=== PATIENT | female | born 1940 | race African-American/Black ===

== ENCOUNTER 2022-03-02 14:10 | Observation (INO) ==
[2022-03-02] MEDS ORDERED: ONDANSETRON 4 MG/2 ML VIAL IV STA (15:08)
[2022-03-02] MEDS ORDERED: SODIUM CHLORIDE 0.9% 1,000 ML IV STA (15:08)
[2022-03-02] MEDS ORDERED: fentaNYL 100 MCG/2 ML VIAL IV STA (15:08)
[2022-03-02] MEDS ORDERED: DIPH/TET/ACEL PERT BOOSTER VACCINE 0.5 ML VIAL IM ONE (15:11)
[2022-03-02] MEDS ORDERED: CROTALIDAE SNAKE ANTIVENOM 4 VIAL in SODIUM CHLORIDE 0.9% 250 ML IV STA ×2 (15:17→15:53)
[2022-03-02 15:43] LABS: Basophils % 0.2 % (0.0-0.8); Eosinophils # 0.2 10*3/uL (0.0-0.87); Eosinophils % 1.9 % (0.00-10.9); Hematocrit 35.2 VOL% (35.7-47.0); Hemoglobin 11.5 GM/DL (12.0-16.0); Immature Granulocytes % 0.4 %; Immature Granulocytes Absolute 0.03 #; Lymphocytes # 1.4 10*3/uL (1.4-4.0); Lymphocytes % 16.5 % (21.3-54.2); Mean Corpuscular HGB Conc 32.7 GM/DL (32-36); Mean Corpuscular Volume 94.4 FL (87-102); Mean Platelet Volume 9.5 FL (9.6-12.0); Monocytes # 0.8 10*3/uL (0.11-0.8); Platelet Count 196 T/CUMM (130-400); Red Blood Count 3.73 MC/CUMM (3.8-5.5); Red Cell Distribution Width 12.8 % (9.3-17.3); White Blood Count 8.5 T/CUMM (4-12)
[2022-03-02 16:01] LABS: Alanine Aminotransferase 144 U/L (13-56); Albumin 3.5 G/DL (3.4-5.0); Alkaline Phosphatase 121 U/L (45-117); Aspartate Amino Transferase 175 U/L (0-37); Bilirubin,Total < 0.39 MG/DL (0.20-1.00); Blood Urea Nitrogen 15 MG/DL (7-18); Calcium 9.1 MG/DL (8.5-10.1); Carbon Dioxide 29 MMOL/L (21-32); Chloride 105 MMOL/L (98-107); Estimated Glom Filtration Rate 46 ML/MIN; Glucose 123 MG/DL (74-106); Osmolality,Calculated 278.5 MOS/KG (273-304); Potassium 3.1 MMOL/L (3.5-5.1); Sodium 139 MMOL/L (136-145); Total Protein 8.5 G/DL (6.4-8.2)
[2022-03-02] MEDS ORDERED: ACETAMINOPHEN 325 MG TABLET PO PRN (16:24)
[2022-03-02] MEDS ORDERED: HYDROmorphone 1 MG/1 ML SYRINGE IV PRN ×2 (16:24→16:41)
[2022-03-02] MEDS ORDERED: ONDANSETRON 4 MG/2 ML VIAL IV PRN (16:24)
[2022-03-02 17:13] LABS: INR 1.1; PT Patient Result 12.4 SECS (10.5-12.0); Partial Thromboplastin Time 32.4 SECS (23.8-32.1)
[2022-03-02] MEDS: LACTATED RINGERS 1,000 ML IV SCH (17:20)
[2022-03-02] MEDS ORDERED: CROTALIDAE SNAKE ANTIVENOM IV ONE (19:35)
[2022-03-02] MEDS ORDERED: SODIUM CHLORIDE IV ONE (19:35)
[2022-03-02] MEDS: LATANOPROST 0.005% OPH SOLN 2.5 ML BOTTLE BOTH EYES SCH (22:31)
[2022-03-03] MEDS: LACTATED RINGERS 1,000 ML IV SCH ×3 (02:51→17:15)
[2022-03-03 06:45] LABS: Basophils % 0.2 % (0.0-0.8); Eosinophils # 0.1 10*3/uL (0.0-0.87); Eosinophils % 2.7 % (0.00-10.9); Hematocrit 30.5 VOL% (35.7-47.0); Hemoglobin 9.9 GM/DL (12.0-16.0); Immature Granulocytes % 0.4 %; Immature Granulocytes Absolute 0.02 #; Lymphocytes # 1.7 10*3/uL (1.4-4.0); Lymphocytes % 35.2 % (21.3-54.2); Mean Corpuscular HGB Conc 32.5 GM/DL (32-36); Mean Corpuscular Volume 95.6 FL (87-102); Mean Platelet Volume 9.9 FL (9.6-12.0); Monocytes # 0.5 10*3/uL (0.11-0.8); Neutrophils % 50.5 % (38.7-73.9); Platelet Count 184 T/CUMM (130-400); Red Blood Count 3.19 MC/CUMM (3.8-5.5); Red Cell Distribution Width 13.1 % (9.3-17.3); White Blood Count 4.8 T/CUMM (4-12)
[2022-03-03 06:54] LABS: PT Patient Result 11.5 SECS (10.5-12.0); Partial Thromboplastin Time 30.7 SECS (23.8-32.1)
[2022-03-03 07:05] LABS: Albumin 2.7 G/DL (3.4-5.0); Bilirubin,Total 0.4 MG/DL (0.20-1.00); Calcium 8.4 MG/DL (8.5-10.1); Osmolality,Calculated 279.3 MOS/KG (273-304); Potassium 3.3 MMOL/L (3.5-5.1); Total Protein 6.9 G/DL (6.4-8.2)
[2022-03-03] MEDS: ASPIRIN EC 81 MG TABLET PO SCH (07:40)
[2022-03-03] MEDS: hydroCHLOROthiazide 25 MG TABLET PO SCH (07:40)
[2022-03-03] MEDS: PANTOPRAZOLE 40 MG TABLET PO SCH (07:40)
[2022-03-03] MEDS: TIMOLOL 0.5% OPH SOLN 5 ML BOTTLE BOTH EYES SCH (09:00)
[2022-03-03] MEDS ORDERED: CROTALIDAE SNAKE ANTIVENOM IV ONE (10:00)
[2022-03-03] MEDS ORDERED: SODIUM CHLORIDE IV ONE (10:00)
[2022-03-03 17:14] VITALS: BP 112/58
[2022-03-03] MEDS: LATANOPROST 0.005% OPH SOLN 2.5 ML BOTTLE BOTH EYES SCH (21:33)
[2022-03-04] MEDS: hydroCHLOROthiazide 25 MG TABLET PO SCH (08:33)
[2022-03-04] MEDS: PANTOPRAZOLE 40 MG TABLET PO SCH (08:33)
[2022-03-04] MEDS: ASPIRIN EC 81 MG TABLET PO SCH (08:33)
[2022-03-04] MEDS: TIMOLOL 0.5% OPH SOLN 5 ML BOTTLE BOTH EYES SCH (08:34)
== END 2022-03-04 10:30 | disposition home or self-care (01) ==
LOC: N.ED 14:10 → N.EDINP 14:10 → N.ICU 17:40
PROVIDERS: ADMIT Student in an Organized Health Care Education/Training Program; ATTEND Student in an Organized Health Care Education/Training Program